=== PATIENT | male | born 1975 | race Caucasian/White ===

== ENCOUNTER 2016-11-05 21:21 | Emergency (ER) | payer OTHER ==
[2016-11-05 22:36] LABS: HEMOGLOBIN 16.1 gm/dl (14.0-17.5); RED BLOOD COUNT 5.11 M/UL (4.20-5.50); WHITE BLOOD COUNT 9.9 K/UL (4.5-11.0)
[2016-11-05 22:54] LABS: BUN/CREATININE RATIO 11 (0-10)
== END 2016-11-06 00:25 | disposition left against medical advice (07) ==
LOC: ER1 21:21
PROVIDERS: Family Medicine
DX: R04.2 Hemoptysis (principal); F17.200 Nicotine dependence, unspecified, uncomplicated
CPT/HCPCS: 36415; 80053; 80307; 82550; 82553; 83874; 84484; 85025; 85610; 85730; 96360; 99285; G0480; J7030; J7050; Q9963

== ENCOUNTER 2022-03-11 16:59 | Emergency (ER) | payer OTHER | END 2022-03-11 19:02 | disposition left against medical advice (07) | LOC: ER1 16:59 | DX: Z53.21 Procedure and treatment not carried out due to patient leaving prior to being seen by health care provider (principal) ==